=== PATIENT | female | born 1945 | race African-American/Black ===

== ENCOUNTER 2024-02-10 21:12 | Emergency (ER) | payer OTHER ==
[~2024-02-10] VITALS: Ht 157.5 cm; Wt 90.1 kg
[2024-02-10 21:22] VITALS: O2SAT 100
[2024-02-10] MEDS ORDERED: IOHEXOL-350 100 ML BOTTLE ONE (22:06)
[2024-02-10] MEDS ORDERED: LABETALOL HCL VIAL 20 MG/4 ML VIAL IV ONE (22:30)
[2024-02-10] MEDS: LABETALOL 5MG/ML SYR 20 MG/4 ML SYRINGE IV NR (23:40)
[2024-02-11 00:08] LABS: BASOPHILS % 0.3 % (0.0-2.0); EOSINOPHILS % 1.4 % (0.0-5.0); HEMATOCRIT. 34.9 % (36.0-48.0); HEMOGLOBIN. 11.3 g/dL (12.0-16.0); LYMPHOCYTES % 26.2 % (20.0-50.0); MEAN CORPUSCULAR HEMOGLOBIN 28.7 pg (28.0-32.0); MEAN CORPUSCULAR HGB CONC 32.3 g/dL (31.0-37.0); MEAN CORPUSCULAR VOLUME 88.8 fL (81.0-99.0); MEAN PLATELET VOLUME 9.6 fl (7.4-10.4); MONOCYTES % 5.7 % (2.0-8.0); NEUTROPHILS % 66.4 % (40.0-76.0); PLATELET 173 x1000/uL (130-400); RED BLOOD CELL COUNT 3.93 mill/uL (4.2-5.4); RED CELL DISTRIBUTION WIDTH 15.3 % (11.6-14.6); WHITE BLOOD COUNT 5.4 x1000/uL (4.5-11.0)
[2024-02-11 00:12] LABS: CHLORIDE 108 mEq/L (98-107); POTASSIUM 3.6 mEq/L (3.5-5.1); SODIUM 143 mEq/L (136-145)
[2024-02-11 00:13] LABS: CARBON DIOXIDE 26 mEq/L (21-32)
[2024-02-11 00:14] LABS: CALCIUM 10.1 mg/dL (8.7-10.4)
[2024-02-11 00:17] LABS: PROTHROMBIN TIME 10.9 sec (9.6-11.0)
[2024-02-11 00:18] LABS: CREATININE 0.8 mg/dL (0.6-1.0); GLUCOSE 162 mg/dL (70-105); UREA NITROGEN BLOOD 13 mg/dL (9-23)
[2024-02-11 00:19] LABS: TROPONIN I HIGH SENSITIVITY 5 ng/L (3.0-34)
[2024-02-11 00:33] LABS: ETHANOL BLOOD < 10 mg/dL (<10)
[2024-02-11 00:43] LABS: BETA HYDROXYBUTYRATE 0.1 mMol/L (0.0-0.3)
[2024-02-11 02:47] VITALS: BP 194/74; PULSE 58; RESP 16
== END 2024-02-11 03:00 | disposition short-term general hospital (02) ==
LOC: ER 21:12
DX: I63.9 Cerebral infarction, unspecified (principal); E11.9 Type 2 diabetes mellitus without complications; I10 Essential (primary) hypertension
CPT/HCPCS: 80048; 82010; 80320; 85025; 85610; 84484; 36415; 71045; 70496; 70498; 70450; 93005; 96374; 99291; Q9967; J3490; 81003; G0480

== ENCOUNTER 2024-08-31 15:19 | Emergency (ER) | payer OTHER ==
[~2024-08-31] VITALS: Ht 167.6 cm; Wt 80.0 kg
[2024-08-31 15:27] VITALS: TEMP 98.3; O2SAT 99
[2024-08-31 16:38] LABS: BASOPHILS % 0.4 % (0.0-2.0); EOSINOPHILS % 1.4 % (0.0-5.0); HEMATOCRIT. 37.7 % (36.0-48.0); LYMPHOCYTES % 24.2 % (20.0-50.0); MEAN CORPUSCULAR HEMOGLOBIN 29.3 pg (28.0-32.0); MEAN CORPUSCULAR HGB CONC 31.8 g/dL (31.0-37.0); MEAN CORPUSCULAR VOLUME 92.1 fL (81.0-99.0); MEAN PLATELET VOLUME 9.6 fl (7.4-10.4); MONOCYTES % 4.9 % (2.0-8.0); NEUTROPHILS % 69.1 % (40.0-76.0); PLATELET 178 x1000/uL (130-400); RED BLOOD CELL COUNT 4.09 mill/uL (4.2-5.4); RED CELL DISTRIBUTION WIDTH 15.2 % (11.6-14.6); WHITE BLOOD COUNT 5.6 x1000/uL (4.5-11.0)
[2024-08-31 16:46] LABS: CHLORIDE 110 mEq/L (98-107); POTASSIUM 4.5 mEq/L (3.5-5.1); SODIUM 142 mEq/L (136-145)
[2024-08-31 16:47] LABS: CALCIUM 10.2 mg/dL (8.7-10.4); CARBON DIOXIDE 25 mEq/L (21-32)
[2024-08-31 16:52] LABS: GLUCOSE 329 mg/dL (70-105); UREA NITROGEN BLOOD 22 mg/dL (9-23)
[2024-08-31 16:53] LABS: TROPONIN I HIGH SENSITIVITY < 4 ng/L (3.0-34)
[2024-08-31 16:54] LABS: ALANINE AMINOTRANSFERASE 25 IU/L (10-49); ALBUMIN 4.5 g/dL (3.2-4.8); ASPARTATE AMINOTRANSFERASE 20 IU/L (<34); BILIRUBIN TOTAL 0.4 mg/dL (0.1-1.0); PROTEIN TOTAL 7.6 g/dL (6.0-8.3)
[2024-08-31 19:15] VITALS: BP 163/71; PULSE 64; RESP 16; O2SAT 99
== END 2024-08-31 19:21 | disposition home or self-care (01) ==
LOC: ER 15:19
DX: R42 Dizziness and giddiness (principal); E11.65 Type 2 diabetes mellitus with hyperglycemia; I10 Essential (primary) hypertension
CPT/HCPCS: 36415; 71045; 80053; 82962; 84484; 85025; 99284

== ENCOUNTER 2024-10-06 18:26 | Emergency (ER) | payer OTHER ==
[~2024-10-06] VITALS: Ht 167.6 cm; Wt 80.0 kg
[2024-10-06 18:28] VITALS: TEMP 98.6; O2SAT 99
[2024-10-06] MEDS: SODIUM CHLORIDE 0.9% 1,000 ML IV ONE (20:00)
[2024-10-06 22:31] LABS: BASOPHILS % 0.2 % (0.0-2.0); EOSINOPHILS % 0.5 % (0.0-5.0); HEMATOCRIT. 37.4 % (36.0-48.0); HEMOGLOBIN. 11.8 g/dL (12.0-16.0); LYMPHOCYTES % 16.5 % (20.0-50.0); MEAN CORPUSCULAR HEMOGLOBIN 29.3 pg (28.0-32.0); MEAN CORPUSCULAR HGB CONC 31.5 g/dL (31.0-37.0); MEAN PLATELET VOLUME 9.9 fl (7.4-10.4); MONOCYTES % 5.3 % (2.0-8.0); NEUTROPHILS % 77.5 % (40.0-76.0); PLATELET 158 x1000/uL (130-400); RED BLOOD CELL COUNT 4.02 mill/uL (4.2-5.4); RED CELL DISTRIBUTION WIDTH 14.7 % (11.6-14.6); WHITE BLOOD COUNT 6.4 x1000/uL (4.5-11.0)
[2024-10-06 22:39] LABS: CHLORIDE 109 mEq/L (98-107); POTASSIUM 4.4 mEq/L (3.5-5.1); SODIUM 142 mEq/L (136-145)
[2024-10-06 22:40] LABS: CALCIUM 9.8 mg/dL (8.7-10.4); CARBON DIOXIDE 24 mEq/L (21-32)
[2024-10-06 22:45] LABS: GLUCOSE 207 mg/dL (70-105); UREA NITROGEN BLOOD 20 mg/dL (9-23)
[2024-10-06 22:46] LABS: TROPONIN I HIGH SENSITIVITY 4 ng/L (3.0-34)
[2024-10-06 23:07] VITALS: BP 112/57; PULSE 65; RESP 12; O2SAT 98
== END 2024-10-06 23:15 | disposition home or self-care (01) ==
LOC: ER 18:26
DX: R42 Dizziness and giddiness (principal); I10 Essential (primary) hypertension; E11.9 Type 2 diabetes mellitus without complications; E78.5 Hyperlipidemia, unspecified
CPT/HCPCS: 99285; 96360; 70450; 71045; 80048; 83880; 85025; 84484; 36415; 93005; J7030; A4663; A4606